=== PATIENT | female | born 1965 | race Caucasian/White ===

== ENCOUNTER 2017-05-28 14:48 | Inpatient (IN) | payer OTHER ==
[~2017-05-28] VITALS: Ht 182.9 cm; Wt 94.3 kg
--- NOTE | 2017-05-28 14:54 | NUR ---
PT SENT TO ED BY DR. FAITH FOR ABNORMALLY HIGH WBC, "SLUGGISH KIDNEY'S", AND ANOTHER LAB THAT PATIENT IS UNSURE OF. PT CURRENTLY BEING WORKED UP FOR LYME DISEASE. DR. FAITH TOLD PT SHE WILL BE ADMITTED AND HE WILL SEE HER TOMORROW.
--- NOTE | 2017-05-28 15:06 | NUR ---
PT AMBULATORY TO ROOM IN NAD
[2017-05-28] MEDS ORDERED: DOXYCYCLINE HY100 M2 PO (15:30)
[2017-05-28] MEDS ORDERED: PAXIL10 M1 PO (15:30)
--- NOTE | 2017-05-28 15:52 | NUR ---
PA SAUL IN WITH PT
[2017-05-28 15:54] LABS: ABSOLUTE BASOPHIL COUNT 0 /CUMM (0.0-0.2); ABSOLUTE EOSINOPHIL COUNT 0.1 /CUMM (0.0-0.7); ABSOLUTE GRANULOCYTE CT 17.4 /CUMM (1.4-6.5); ABSOLUTE LYMPH COUNT 0.9 /CUMM (1.2-3.4); ABSOLUTE MONOCYTE COUNT 1.4 /CUMM (0.10-0.60); BASOPHIL % 0 % (0.0-2.0); EOSINOPHIL % 0.6 % (0-5); GRANULOCYTE % 87.9 % (42.2-75.2); HEMATOCRIT 37.7 % (37-47); MEAN CORPUSCULAR HGB 29.1 PG (27.0-31.0); MEAN CORPUSCULAR HGB CONC 33.6 G/DL (33.0-37.0); MEAN CORPUSCULAR VOLUME 86.7 FL (81.0-99.0); MEAN PLATELET VOLUME 6.8 FL (7.4-10.4); PLATELET COUNT 247 /CUMM (130-400); RBC DISTRIBUTION WIDTH 12.9 % (11.5-14.5); RED BLOOD CELL CT 4.35 /CUMM (4.20-5.40); WHITE BLOOD CELL COUNT 19.8 /CUMM (4.8-10.8)
--- NOTE | 2017-05-28 16:00 | ED GENERAL ADULT ---
History of Present Illness General Chief Complaint: General Adult Stated Complaint: SENT BY DR. FAITH ABNORMAL LABS Source: patient Exam Limitations: no limitations Vital Signs & Intake/Output Vital Signs & Intake/Output Vital Signs Date Time Temp Pulse Resp B/P B/P Pulse O2 O2 Flow FiO2 Mean Ox Delivery Rate 05/31 0603 98.0 77 22 128/80 94 Room Air 05/30 2300 97.9 79 20 122/78 99 Room Air 05/30 1600 98.4 78 18 124/70 99 Room Air ED Intake and Output 05/31 0000 05/30 1200 Intake Total 500 0 Output Total 1500 600 Balance -1000 -600 Intake, Oral 500 0 Output, Urine 1500 600 Allergies Coded Allergies: Penicillins (Intermediate, ITCHING, HIVES 05/28/17) Reconcile Medications Ciprofloxacin HCl (Cipro) 500 MG TABLET 1 TAB PO BID UTI Paroxetine HCl (Paxil) 10 MG TABLET 1 TAB PO DAILY HOT FLASHES (Reported) Triage Note: PT SENT TO ED BY DR. FAITH FOR ABNORMALLY HIGH WBC, "SLUGGISH KIDNEY'S", AND ANOTHER LAB THAT PATIENT IS UNSURE OF. PT CURRENTLY BEING WORKED UP FOR LYME DISEASE. DR. FAITH TOLD PT SHE WILL BE ADMITTED AND HE WILL SEE HER TOMORROW. Triage Nurses Notes Reviewed? yes Onset: Gradual Duration: week(s): Timing: recent history Severity: moderate HPI: 51-year-old female presents to emergency department complaining of malaise and arthralgias 3-4 weeks. She also had a brief episode of left kidney pain that felt similar to her previous kidney stones about 3 days ago however this pain resolves on its own. Patient states that she was seen at Dr. Faith's office yesterday and had blood work drawn. She states that Dr. Faith suspected Lyme disease and she was started on oral doxycycline last night. Dr. Faith called her to inform her of abnormal blood work, low kidney filtering, leukocytosis, possible electrolyte abnormality. Dr. Faith instructed patient to report to emergency room for admission to hospital. Patient states that she has been feeling weakness, fatigue, intermittent bouts of diarrhea and constipation, chills, hot flashes. She denies seeing any tick on her recently. She denies urinary symptoms, sore throat, congestion, dyspnea, chest pain, abdominal pain, nausea, vomiting, dysuria, hematuria, urinary frequency. (FAMILIA HUGHES PA-C) Past History Travel History Traveled to [place] past 21 day No Medical History Any Pertinent Medical History? 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 No (FAMILIA HUGHES PA-C) Review of Systems Review of Systems Constitutional: Reports: see HPI. Comments Review of systems: See HPI, All other systems negative. Constitutional, + chills + tactile fever, +malaise HEENT: No visual changes no sore throat no congestion Cardiovascular: No chest pain , no palpitation , no orthopnea Skin: no rashes, no change in skin Respiratory: No dyspnea no cough no sputum GI: No nausea no vomiting,+ diarrhea, +constipation : No dysuria No hematuria, no frequency, no discharge Muscle skeletal: +joint pain, no joint swelling, + back pain, +neck pain, Neurologic: No numbness no confusion, no headache Psych: No stress no depression,. Heme/endocrine: No bruising no bleeding Immunology: No lymphadenopathy (FAMILIA HUGHES PA-C) Physical Exam Physical Exam General Appearance: well developed/nourished, no apparent distress, alert, awake Comments: Well-developed well-nourished person in no acute distress HEENT: Normal EENT exam; EOMI. HEAD is atraumatic. moist mucous membranes. Neck: Supple, normal range of motion without pain or tenderness Back: Nontender, no CVA tenderness. Full range of motion Cardiovascular: Tachycardia, Regular rhythm no murmurs rubs or gallops, normal JVP Respiratory: No respiratory distress. Patient speaking in full complete sentences. Breath sounds clear to auscultation bilaterally: NO W/R/R Abdomen: Soft, nontender nondistended, no appreciable organomegaly. Normal bowel sounds. No rebound/guarding, No appreciable enlargement of the abdominal aorta, No ascites. Extremity: No edema, full range of motion of extremities, normal and equal pulses bilaterally Neuro: Alert oriented x3, motor sensory normal, There were no obvious focal neurologic abnormalities. Skin: No appreciable rash on exposed skin, skin is warm and dry. Psych: Mood and affect is normal, memory and judgment is normal. Core Measures ACS in differential dx? No CVA/TIA Diagnosis: No Severe Sepsis Present: No Septic Shock Present: No (FAMILIA HUGHES PA-C) Progress Differential Diagnoses I considered the following diagnoses in my evaluation of the patient: [sepsis, lyme disease, pyelonephritis, UTI] Plan of Care: Orders Procedure Date/time Status CBC WITHOUT DIFFERENTIAL 05/31 726 Complete BASIC ELECTROLYTES PLUS BUN&CR 05/31 726 Complete Discharge Patient 05/31 UNK Active Regular Diet 05/30 D Active Laboratory Tests 05/31/17 0749: Anion Gap 10, Estimated GFR 58 L, BUN/Creatinine Ratio 13.0, CBC w Diff NO MAN DIFF REQ, RBC 4.22, MCV 85.5, MCH 29.0, RDW 13.0, MPV 6.6 L, Gran % 77.9 H, Lymphocytes % 14.2 L, Monocytes % 7.0, Eosinophils % 0.7, Basophils % 0.2, Absolute Granulocytes 7.2 H, Absolute Lymphocytes 1.3, Absolute Monocytes 0.6, Absolute Eosinophils 0.1, Absolute Basophils 0, PUBS MCHC 33.9 1748 - spoke with Dr. Faith over the phone. He recommends CT scan abdomen and pelvis with oral contrast, replacing electrolytes IV, blood cultures, lactic acid and admission to general medicine. Despite positive UA Dr. Faith does not believe that this is urosepsis. He states that the lyme culture was negative at his office. He is in agreement with IV Rocephin here in ED and continued IV fluids. The patient will be admitted for further IV fluids and IV antibiotics, possible nephrology consult given JUAN, electrolyte replacement if needed, repeat blood work, premature discharge would be medically unsafe. (FAMILIA HUGHES PA-C) Initial ED EKG: none (FAMILIA HUGHES PA-C) Departure Departure Disposition: STILL A PATIENT Condition: Stable Clinical Impression Primary Impression: Leukocytosis Secondary Impressions: Acute kidney injury, Fever Referrals: SHARAD FAITH MD (PCP/Family) Departure Forms: Customer Survey General Discharge Information Prescriptions: Current Visit Scripts Ciprofloxacin HCl (Cipro) 1 TAB PO BID #24 TAB Admission Note Spoke With: SHARAD FAITH MD Documentation of Exam: Documentation of any treatments & extenuating circumstances including Concerns Regarding Discharge (functional status, medication knowledge or non-compliance, living conditions, etc.) that warrant an admission rather than observation: [ Acute kidney injury, leukocytosis and tachycardia with no known source of infection, UA positive, requiring IV antibiotics, IV fluids, possible electrolyte replacement, repeat labs, possible nephrology consult, premature dicharge would be medically unsafe] (FAMILIA HUGHES PA-C) PA/WALL MAN Co-Sign Statement Statement: ED Attending supervision documentation- [X] I saw and evaluated the patient. I have also reviewed all the pertinent lab results and diagnostic results. I agree with the findings and the plan of care as documented in the PA's/WALL MAN's documentation. [X] I have reviewed the ED Record and agree with the PA's/WALL MAN's documentation. [] Additions or exceptions (if any) to the PAs/WALL MAN's note and plan are summarized below: [] (RJ SINGH,CARMELINA Isidro) Critical Care Note Critical Care Note Critical Care Time: non-applicable (FAMILIA HUGHES PA-C) pelvis with oral contrast, replacing electrolytes IV, blood cultures, lactic acid and admission to general medicine. Despite positive UA Dr. Faith does not believe that this is urosepsis. He states that will lyme culture was negative at his office. He is in agreement with IV Rocephin here in ED and continued IV fluids. The patient will be admitted for further IV fluids and IV antibiotics, possible nephrology consult given JUAN, electrolyte replacement if needed, repeat blood work, premature discharge would be medically unsafe. (FAMILIA HUGHES PA-C) Departure Departure Disposition: STILL A PATIENT Condition: Stable Clinical Impression Primary Impression: Leukocytosis Secondary Impressions: Acute kidney injury, Fever Referrals: SHARAD FAITH MD (PCP/Family) Departure Forms: Customer Survey General Discharge Information Admission Note Spoke With: SHARAD FAITH MD Documentation of Exam: Documentation of any treatments & extenuating circumstances including Concerns Regarding Discharge (functional status, medication knowledge or non-compliance, living conditions, etc.) that warrant an admission rather than observation: [ Acute kidney injury, leukocytosis and tachycardia with no known source of infection, UA positive, requiring IV antibiotics, IV fluids, possible electrolyte replacement, repeat labs, possible nephrology consult, premature dicharge would be medically unsafe] (FAMILIA HUGHES PA-C) PA/WALL MAN Co-Sign Statement Statement: ED Attending supervision documentation- [X] I saw and evaluated the patient. I have also reviewed all the pertinent lab results and diagnostic results. I agree with the findings and the plan of care as documented in the PA's/WALL MAN's documentation. [X] I have reviewed the ED Record and agree with the PA's/WALL MAN's documentation. [] Additions or exceptions (if any) to the PAs/WALL MAN's note and plan are summarized below: [] (RJ SINGH,CARMELINA Isidro)
--- NOTE | 2017-05-28 16:13 | NUR ---
URINE TRIO SENT TO LAB
--- NOTE | 2017-05-28 19:01 | NUR ---
PT ASSIGNED TO [facility] [id number]
--- NOTE | 2017-05-28 19:04 | History & Physical ---
General Information and HPI MD Statement: I have seen and personally examined CLARISSA REMY and documented this H&P. The patient is a 51 year old F who presented with a patient stated chief complaint of FEVER, CHILLS AND ABNORMAL LABS. Source of Information: patient Exam Limitations: no limitations History of Present Illness: Ms. Remy is a 51-year-old woman with no significant past medical history who presented to ED with a 3 to four-week history of muscle aches and pains, off and on, tiredness and intermittent episodes of nausea and vomiting. Patient denies any rash or any fevers observed at home. She denies any unusual direct contact or exposures, no recent tick or mosquito bites. Her symptoms have been waxing and waning. The symptoms worsened over the last 1 week to a point that the patient decided to go to primary care physician Dr. Ferreira, we are lab work was done and revealed leukocytosis and hence the patient was sent to the ED. No recent travel. Patient admits to having seen takes on her pet dogs, who often take a nap on her bed. Patient has also noted deers in her backyard. On admission the patient has been afebrile. Laboratory revealed a white blood count of 19,000 with segmented neutrophils and bands, creatinine 1.5 we worse than baseline and normal AST and ALT. A Lyme's titer was checked at Dr. Pham's office which came back negative. The patient was started on doxycycline yesterday, and the patient does admit to resolution of her symptoms since yesterday. Although, she has experienced 3 episodes of loose watery stools after the initiation of doxycycline. No cough, no sore throat, no shortness of breath, no abdominal pain, no constipation or diarrhea, no urinary complaints. No decline in functionality, no confusion. All other systems reviewed and negative, exceptions above. 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 Exam & Diagnostic Data Last 24 Hrs of Vital Signs/I&O Vital Signs Date Time Temp Pulse Resp B/P B/P Pulse O2 O2 Flow FiO2 Mean Ox Delivery Rate 05/28 1819 98.2 81 18 117/73 100 Room Air 05/28 1533 Room Air 05/28 1451 96.0 115 15 109/73 98 Room Air Room Air Intake & Output 05/28 1600 05/28 0800 05/28 0000 Intake Total Output Total Balance Patient 208 lb Weight Weight Reported by Patient Measurement Method Physical Exam General Appearance Alert, Oriented X3, Cooperative Skin No Rashes, No Breakdown Skin Temp/Moisture Exam: Cool/Dry Sepsis Skin Exam (color): Normal for Ethnicity HEENT Atraumatic, PERRLA Neck Supple, No JVD Lymphatic Axillary nl, Cervical nl Cardiovascular Regular Rate, Normal S1, Normal S2 Lungs Clear to Auscultation, Normal Air Movement Abdomen Normal Bowel Sounds, Soft, No Tenderness Neurological Normal Gait, Normal Speech, Strength at 5/5 X4 Ext Extremities No Clubbing, No Cyanosis, No Edema Vascular Normal Pulses, Pulses Symmetrical Last 24 Hrs of Labs/Toni: Laboratory Tests 05/28/17 1753: Lactic Acid Cancelled 05/28/17 1601: Urine Color YEL, Urine Clarity HAZY H, Urine pH 6.0, Ur Specific O'Brien 1.010, Urine Protein 30 H, Urine Ketones NEG, Urine Nitrite NEG, Urine Bilirubin NEG, Urine Urobilinogen 0.2, Ur Leukocyte Esterase LARGE H, Ur Microscopic SEDIMENT EXAMINED, Urine RBC 1-3, Urine WBC > 75 H, Ur Epithelial Cells RARE, Urine Bacteria MANY H, Urine Hemoglobin MOD H, Urine Glucose NEG 05/28/17 1543: Anion Gap 15, Estimated GFR 37 L, BUN/Creatinine Ratio 19.3, Glucose 127 H, Lactic Acid 0.9, Calcium 9.3, Total Bilirubin 0.6, AST 17, ALT 39, Alkaline Phosphatase 113, Total Protein 6.5, Albumin 3.4 L, Globulin 3.1, Albumin/ Globulin Ratio 1.1, CBC w Diff MAN DIFF ORDERED, RBC 4.35, MCV 86.7, MCH 29.1, RDW 12.9, MPV 6.8 L, Gran % 87.9 H, Lymphocytes % 4.5 L, Monocytes % 7.0, Eosinophils % 0.6, Basophils % 0 L, Absolute Granulocytes 17.4 H, Segmented Neutrophils 85 H, Band Neutrophils 3, Absolute Lymphocytes 0.9 L, Lymphocytes 5 L, Monocytes 7, Absolute Monocytes 1.4 H, Absolute Eosinophils 0.1, Absolute Basophils 0, Platelet Estimate ADEQUATE, Normocytic RBCs VERIFIED, Normochromic RBCs VERIFIED, PUBS MCHC 33.6, Fld Total RBCs Counted 100 Microbiology 05/28 1815 BLOOD: Blood Culture - RECD 05/28 175 BLOOD: Blood Culture - RECD 05/28 1601 URINE ROUT: Urine Culture - RECD Assessment/Plan Assessment: 51 year old woman with leukocytosis and myalgias a few weeks duration; a tickborne infection must be considered. Possibilities include Borrelia miyamotoi, a zoontic that spreads through Ixodes scapularis, or Anaplasma or Lyme, although would expect leukopenia or thrombocytopenia with Anaplasma and not leukocytosis as is the case in our patient. Other possibilities include West Nile virus, parvovirus B19 or enterovirus. Given patient's improvement of symptoms on doxycycline, a tickborne illnesses may be a possibility. Her symptoms of profuse sweating may be related to paroxetine, part of her disease spectrum of current illness or postmenopausal hot flashes. No rash. 1. Unexplained leukocytosis: Tickborne illness a possibility. Lyme's titer was checked and was negative at Dr. Pham's office. This essentially would rule out possibility of Lyme's because patient has had illness for 3-4 weeks and the titer should have been positive by now. Other possibilities as discussed above should be considered. Continue doxycycline for now. May merit from ID consult. Rule out other sources of infection with a chest x-ray, blood cultures, stool cultures if diarrhea persists. Urinalysis noted for leukocyte esterases, sent for urine culture, patient denies any urinary symptoms. 2. Acute kidney injury: Prerenal ; Likely a result of decreased by mouth intake , persistent nausea and vomiting. Continue fluid hydration, check BEP in a.m. 3. Status post hysterectomy: Continue paroxetine for now. 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 Full code. Intermittent pneumatic compression devices for DVT prophylaxis, and laboratory patient. Advanced diet as tolerated. Zofran for nausea and vomiting. As Ranked By This Provider Problem List: 1. Leukocytosis 2. Acute kidney injury Core Measures/Miscellaneous Acute Coronary Syndrome ACS Diagnosis: No Cerebrovascular Accident CVA/TIA Diagnosis: No Congestive Heart Failure CHF Diagnosis: No VTE (View Protocol) VTE Risk Factors: Acute medical illness, Age > 40, Immobility, paresis No [facility] VTE prophylaxis d/t: No contraindications No VTE Pharm Prophylaxis d/t: No contraindications (Ambulatory patient) VTE Diagnosis: No VTE Type: NONE VTE Confirmed by (Test): NONE Sepsis (View Protocol) Severe Sepsis Present: No Septic Shock Septic Shock Present: No Miscellaneous Documentation Attending Case Discussed With: SHARAD FAITH MD Primary Care Physician: SHARAD FAITH MD Patient sees these Specialists None Level of Patient Care: General Medicine
--- NOTE | 2017-05-28 19:21 | NUR ---
REPORT TO ROBERT PORRAS
[2017-05-28 19:55] VITALS: BP 130/70
--- NOTE | 2017-05-28 19:55 | NUR ---
AT THIS TIME, PT ADMITTED TO FROM THE ER, PT AMBULATED TO BED, A/OX3, ON RA, DENIES CP, DENIES SOB, VSS, IVF INFUSING PER EMAR, DENIES ANY DISCOMFORT, ORIENTED TO ROOM AND CALL [facility], SAFETY MAINTAINED, NEEDS WITHIN REACH
--- NOTE | 2017-05-28 20:10 | CT SCAN REPORT ---
EXAMINATION: CT ABDOMEN AND PELVIS WITH CONTRAST CLINICAL INFORMATION: Fever, pain COMPARISON: None TECHNIQUE: Multidetector volumetric imaging was performed from the superior aspect of the liver through the pubic symphysis following administration of oral contrast. Sagittal and coronal reformatted images were obtained on the technologist's workstation. DLP: 511.86 mGy-cm FINDINGS: LUNG BASES: The limited images of lower thorax demonstrate clear lungs. There is trace amount of pericardial effusion with maximum thickness of 0.5 cm behind the left ventricle. The cardiac size is normal. Noncontrast enhanced images of the abdomen and pelvis demonstrate: LIVER, GALLBLADDER, AND BILIARY TREE: The liver is normal in size, shape, and attenuation. No biliary ductal dilatation is present. The gallbladder is unremarkable with no evidence of radiopaque gallstones, gallbladder wall thickening, or obvious pericholecystic inflammatory changes. PANCREAS: Unremarkable. SPLEEN: Spleen is mildly enlarged, measures about 13.2 cm in maximum CC diameter. ADRENAL GLANDS: Unremarkable. KIDNEYS AND URETERS: There is moderate right-sided hydroureteronephrosis to the level of a 0.9 cm stone in the pelvic part of the right ureter. This stone measures 1248 Hounsfield unit in density. The stone is approximately located 7 cm from the right UV junction. Trace right perinephric fat stranding seen, axial image 43 from series 2. The left kidney is normal in size. No left urinary stone. No left-sided hydronephrosis. The urinary bladder is empty. GASTROINTESTINAL TRACT: The small and large bowel are unremarkable. The appendix is is not definitely visualized, however there are no inflammatory changes in the expected position of the appendix to suggest acute appendicitis.. ABDOMINAL WALL: No significant hernia is appreciated. LYMPH NODES: Normal. VASCULAR: Unremarkable. PELVIC VISCERA: The uterus and adnexa are unremarkable. OSSEOUS STRUCTURES: There is narrowing of L5-S1 intervertebral disc space with posterior disc osteophyte complex. IMPRESSION: Moderate right-sided hydroureteronephrosis to the level of a 0.9 cm stone in the pelvic part of the right ureter. Trace pericardial effusion. L5-S1 discopathy.
[2017-05-28 23:00] VITALS: BP 128/70
[2017-05-29 06:10] VITALS: BP 122/76
[2017-05-29 08:42] LABS: ABSOLUTE BASOPHIL COUNT 0 /CUMM (0.0-0.2); ABSOLUTE EOSINOPHIL COUNT 0 /CUMM (0.0-0.7); ABSOLUTE GRANULOCYTE CT 11.5 /CUMM (1.4-6.5); ABSOLUTE LYMPH COUNT 0.9 /CUMM (1.2-3.4); ABSOLUTE MONOCYTE COUNT 1.2 /CUMM (0.10-0.60); BASOPHIL % 0 % (0.0-2.0); EOSINOPHIL % 0.1 % (0-5); GRANULOCYTE % 84.5 % (42.2-75.2); HEMATOCRIT 33.3 % (37-47); MEAN CORPUSCULAR HGB 29.3 PG (27.0-31.0); MEAN CORPUSCULAR HGB CONC 33.7 G/DL (33.0-37.0); MEAN CORPUSCULAR VOLUME 87.1 FL (81.0-99.0); MEAN PLATELET VOLUME 6.9 FL (7.4-10.4); PLATELET COUNT 239 /CUMM (130-400); RBC DISTRIBUTION WIDTH 12.9 % (11.5-14.5); RED BLOOD CELL CT 3.83 /CUMM (4.20-5.40)
[2017-05-29 10:24] LABS: WHITE BLOOD CELL COUNT 13.6 /CUMM (4.8-10.8)
--- NOTE | 2017-05-29 10:31 | PN- Att Addend ---
Attending Addendum Attending Brief Note Attending medical note. 51-year-old lady well known to me was seen in my office on May 27 complaining of chills and Reiger with fever for the past 3 weeks. She been having fever on and off with intermission for about 3 weeks, no history of any tick bites no history of sore throat no history of any nausea vomiting or diarrhea. No history of dysuria frequency or urgency no history of any symptoms of upper respiratory infection or respiratory infections. She did experience headache and also some neck stiffness and board generalized body aches. She was extubated diaphoretic in the office she was having episode of fever blood was done in the office she was found suspicion for Lyme disease she was started on doxycycline. The next day May 28 labs called with results indicating her white count was 17, 000 with the potassium of 3.4 and severely depleted phosphates as well as creatinine of 1.7. She was called and asked to come to the hospital for admission. Past medical history no major significant medical history. Currently not on any prescription medications. On examination Patient is comfortable without any pain Conjunctiva is pale sclera is anicteric is membrane is dry Neck is supple JVD is not raised no carotid bruit present. S1-S2 is normal Lungs air entry equal bilaterally no crepitations or rhonchi Abdomen is soft nontender bowel sounds are present mild flank tenderness present on the right side. No calf tenderness present No focal neurological deficit. Intake & Output 05/29 1600 05/29 0800 05/29 0000 Intake Total 1080 1425 Output Total 300 Balance 1080 1125 Intake, IV 600 1225 Intake, Oral 480 200 Number 0 1 Bowel Movements Output, Urine 300 Patient 208 lb Weight Weight Reported by Patient Measurement Method Current Medications Sig/Essie Start time Last Medication Dose Route Stop Time Status Admin Ceftriaxone Sodium 0 .STK-MED ONE 05/28 182 DC .ROUTE Ceftriaxone Sodium 1,000 MG ONCE ONE 05/28 1715 DC 05/28 IV 05/28 1716 1822 Diclofenac Sodium 1 RICKY 4 TIMES/DAY 05/28 2200 AC 05/28 TOP 205 Doxycycline Hyclate 100 MG BID 05/28 2200 AC 05/29 PO 0928 Ondansetron HCl 4 MG Q8P PRN 05/28 1915 AC PO Paroxetine HCl 10 MG DAILY 05/29 1000 AC 05/29 PO 0927 Phosphate 250 MG PC AND AT BEDTIME 05/28 2245 AC 05/29 PO 0930 Potassium Chloride 20 MEQ .STK-MED ONE 05/28 2301 DC PO 05/28 2302 Potassium Chloride 20 MEQ ONCE ONE 05/28 224 DC 05/28 PO 05/28 224 2304 Sodium Chloride 1,000 ML .[id number] 05/28 1845 AC 05/28 IV 05/29 2124 2059 Sodium Chloride 1,000 ML BOLUS ONE 05/28 1600 DC 05/28 IV 05/28 1659 1630 Laboratory Tests 05/29 1753 Chemistry Sodium (137 - 145 mmol/L) 140 Potassium (3.5 - 5.1 mmol/L) 3.8 Chloride (98 - 107 mmol/L) 109 H Carbon Dioxide (22 - 30 mmol/L) 21 L Anion Gap (5 - 16) 10 BUN (7 - 17 mg/dL) 16 Creatinine (0.5 - 1.0 mg/dL) 1.1 H Estimated GFR (>60 ml/min) 52 L BUN/Creatinine Ratio (7 - 25 %) 14.5 Lactic Acid Cancelled Cancelled Phosphorus (2.5 - 4.5 mg/dL) 3.4 Creatine Kinase (30 - 135 U/L) 39 Hematology CBC w Diff Pending WBC Pending RBC Pending Hgb Pending Hct Pending MCV Pending MCH Pending RDW Pending Plt Count Pending MPV Pending Gran % Pending Lymphocytes % Pending Monocytes % Pending Eosinophils % Pending Basophils % Pending Absolute Granulocytes Pending Absolute Lymphocytes Pending Absolute Monocytes Pending Absolute Eosinophils Pending Absolute Basophils Pending PUBS MCHC Pending 05/28 05/28 1601 1543 Chemistry Sodium (137 - 145 mmol/L) 136 L Potassium (3.5 - 5.1 mmol/L) 3.6 Chloride (98 - 107 mmol/L) 101 Carbon Dioxide (22 - 30 mmol/L) 19 L Anion Gap (5 - 16) 15 BUN (7 - 17 mg/dL) 29 H Creatinine (0.5 - 1.0 mg/dL) 1.5 H Estimated GFR (>60 ml/min) 37 L BUN/Creatinine Ratio (7 - 25 %) 19.3 Glucose (65 - 99 mg/dL) 127 H Lactic Acid (0.7 - 2.1 mmol/L) 0.9 Calcium (8.4 - 10.2 mg/dL) 9.3 Phosphorus (2.5 - 4.5 mg/dL) 2.0 L Total Bilirubin (0.2 - 1.3 mg/dL) 0.6 AST (14 - 36 U/L) 17 ALT (9 - 52 U/L) 39 Alkaline Phosphatase (<127 U/L) 113 Total Protein (6.3 - 8.2 g/dL) 6.5 Albumin (3.5 - 5.0 g/dL) 3.4 L Globulin (1.9 - 4.2 gm/dL) 3.1 Albumin/Globulin Ratio (1.1 - 2.2 %) 1.1 Hematology CBC w Diff MAN DIFF ORDERED WBC (4.8 - 10.8 /CUMM) 19.8 H RBC (4.20 - 5.40 /CUMM) 4.35 Hgb (12.0 - 16.0 G/DL) 12.6 Hct (37 - 47 %) 37.7 MCV (81.0 - 99.0 FL) 86.7 MCH (27.0 - 31.0 PG) 29.1 RDW (11.5 - 14.5 %) 12.9 Plt Count (130 - 400 /CUMM) 247 MPV (7.4 - 10.4 FL) 6.8 L Gran % (42.2 - 75.2 %) 87.9 H Lymphocytes % (20.5 - 51.1 %) 4.5 L Monocytes % (1.7 - 9.3 %) 7.0 Eosinophils % (0 - 5 %) 0.6 Basophils % (0.0 - 2.0 %) 0 L Absolute Granulocytes (1.4 - 6.5 /CUMM) 17.4 H Segmented Neutrophils (42.2 - 75.2 %) 85 H Band Neutrophils (0.0 - 5.0 %) 3 Absolute Lymphocytes (1.2 - 3.4 /CUMM) 0.9 L Lymphocytes (20.5 - 51.1 %) 5 L Monocytes (1.7 - 9.3 %) 7 Absolute Monocytes (0.10 - 0.60 /CUMM) 1.4 H Absolute Eosinophils (0.0 - 0.7 /CUMM) 0.1 Absolute Basophils (0.0 - 0.2 /CUMM) 0 Platelet Estimate (ADEQUATE) ADEQUATE Normocytic RBCs VERIFIED Normochromic RBCs VERIFIED PUBS MCHC (33.0 - 37.0 G/DL) 33.6 Other Body Source Fld Total RBCs Counted (%) 100 Urines Urine Color (YEL,AMB,STR) YEL Urine Clarity (CLEAR) HAZY H Urine pH (5.0 - 8.0) 6.0 Ur Specific [place] (1.001 - 1.035) 1.010 Urine Protein (NEG,<30 MG/DL) 30 H Urine Ketones (NEG) NEG Urine Nitrite (NEG) NEG Urine Bilirubin (NEG) NEG Urine Urobilinogen (0.1 - 1.0 EU/dl) 0.2 Ur Leukocyte Esterase (NEG) LARGE H Ur Microscopic SEDIMENT EXAMINED Urine RBC (0 - 5 /HPF) 1-3 Urine WBC (0 - 2 /HPF) > 75 H Ur Epithelial Cells (NONE,FEW) RARE Urine Bacteria (NEG/NONE) MANY H Urine Hemoglobin (NEG) MOD H Urine Glucose (N MG/DL) NEG Microbiology Date/Time Procedure - Status Source Growth 05/28 1815 Blood Culture - RECD BLOOD 05/28 1753 Blood Culture - RECD BLOOD 05/28 1601 Urine Culture - RES URINE ROUT GRAM NEGATIVE RODS Vital Signs Date Time Temp Pulse Resp B/P B/P Pulse O2 O2 Flow FiO2 Mean Ox Delivery Rate 05/29 0610 99.4 98 20 122/76 95 Room Air 05/28 2300 98.6 90 16 128/70 99 Room Air 05/28 1955 98.7 98 18 130/70 99 Room Air 05/28 1937 98.7 67 18 128/68 96 Room Air 05/28 1819 98.2 81 18 117/73 100 Room Air 05/28 1533 Room Air 05/28 1451 96.0 115 15 109/73 98 Room Air Room Air Intake & Output 05/29 1600 07/02 0800 07/ 0000 Intake Total 1080 1425 Output Total 300 Balance 1080 1125 Intake, IV 600 1225 Intake, Oral 480 200 Number 0 1 Bowel Movements Output, Urine 300 Patient 208 lb Weight Weight Reported by Patient Measurement Method CT scan of the abdomen and pelvis IMPRESSION: Moderate right-sided hydroureteronephrosis to the level of a 0.9 cm stone in the pelvic part of the right ureter. Trace pericardial effusion. L5-S1 discopathy. Assessment #1. Fever with rigors for about 3 weeks with leukocytosis without any other symptoms. Etiology not very clear symptoms of headaches body aches and myalgia suspicious for Lyme disease was very high Lyme titers were sent and results are pending patient is currently on doxycycline. #2 CAT scan of the abdomen shows left mild hydronephrosis secondary to obstruction due to renal calculus with urine showing gram-negative rods. #3 acute kidney injury patient was started on IV fluids #4 depletion of potassium and also phosphates, patient was admitted for IV fluids and hydration as well as repletion of potassium and phosphorus. Will obtain infectious disease consult as well as neurology consult.
--- NOTE | 2017-05-29 10:32 | Admission Certification ---
Admission Certification Certification Statement - As attending physician, I certify that at the time of - admission, based on clinical presentation, severity of - symptoms, need for further diagnostic testing and - therapeutic interventions, and risk of adverse outcomes - without in-hospital treatment, in my clinical assessment, - this patient requires an acute hospital stay for a minimum - of two nights or longer. I have also considered psychsocial - factors such as support system, advanced age, financial - issues, cognitive issues, and failed out-patient treatments, - past re-admission history, safety of patient, and lack of - compliance as applicable. Specific rationale supporting this admission is: 51-year-old lady admitted to the hospital for fever with rigors for about 3 weeks duration, etiology not very clear. Patient had acute kidney injury associated with depletion of potassium as well as phosphates which were critical level. Patient was admitted for IV fluids as well as repletion of potassium and phosphates and to find out the etiology of this fever.
--- NOTE | 2017-05-29 10:54 | PN- Housestaff ---
Subjective Follow-up For: Generalized fatigue UTI/pyelonephritis 0.9 cm ureteral stone and pelvic region of right ureter Right-sided hydroureteronephrosis Complaints: low back pain Mild fatigue Subjective: Interval history: This morning Mrs. Fernández states that she feels slightly better with regards to an improvement in the fatigue. She denies any recurrence of nausea, fevers or chills at this time. She does complain of noticeable lower back discomfort. Review of Systems Constitutional: Reports: see HPI. EENTM: Reports: no symptoms. Cardiovascular: Reports: no symptoms. Respiratory: Reports: no symptoms. Gastrointestinal: Reports: no symptoms. Genitourinary: Reports: see HPI. Musculoskeletal: Reports: see HPI. Objective Last 24 Hrs of Vital Signs/I&O Vital Signs Date Time Temp Pulse Resp B/P B/P Pulse O2 O2 Flow FiO2 Mean Ox Delivery Rate 05/29 1525 98.5 94 20 118/80 97 Room Air 05/29 0610 99.4 98 20 122/76 95 Room Air 05/28 2300 98.6 90 16 128/70 99 Room Air 05/28 1955 98.7 98 18 130/70 99 Room Air 05/28 1937 98.7 67 18 128/68 96 Room Air 05/28 1819 98.2 81 18 117/73 100 Room Air Intake & Output 05/29 1600 / 0800 05/29 0000 Intake Total 1080 1425 Output Total 300 Balance 1080 1125 Intake, IV 600 1225 Intake, Oral 480 200 Number 0 1 Bowel Movements Output, Urine 300 Patient 208 lb Weight Weight Reported by Patient Measurement Method Physical Exam General Appearance: Alert, Cooperative, No Acute Distress Skin: No Significant Lesion HEENT: Mucous Membr. moist/pink Cardiovascular: Regular Rate, Normal S1, Normal S2 Lungs: Clear to Auscultation, Normal Air Movement, diminished breath sounds in the basilar region Abdomen: Normal Bowel Sounds, Soft, No Tenderness Neurological: Normal Speech Extremities: Normal Pulses Vascular: Pulses Symmetrical Current Medications: Current Medications Sig/Essie Start time Last Medication Dose Route Stop Time Status Admin Ceftriaxone Sodium 1,000 MG DAILY@1830 05/29 1830 AC IV Ceftriaxone Sodium 1,000 MG DAILY 05/29 1042 DC IV Ceftriaxone Sodium 0 .STK-MED ONE 05/28 182 DC .ROUTE Ceftriaxone Sodium 1,000 MG ONCE ONE 05/28 1715 DC 05/28 IV 07/01 1716 1822 Diclofenac Sodium 1 RICKY 4 TIMES/DAY 05/28 2200 AC 05/28 TOP 2059 Doxycycline Hyclate 100 MG BID 05/28 2200 DC 05/29 PO 0928 Ondansetron HCl 4 MG Q8P PRN 05/28 1915 AC 05/29 PO 1056 Paroxetine HCl 10 MG DAILY 05/29 1000 AC 05/29 PO 0927 Phosphate 250 MG PC AND AT BEDTIME 05/28 224 AC 05/29 PO 1306 Potassium Chloride 20 MEQ .STK-MED ONE 05/28 2301 DC PO 05/28 2302 Potassium Chloride 20 MEQ ONCE ONE 05/28 224 DC 05/28 PO 05/28 224 2304 Sodium Chloride 1,000 ML .[id number] 05/28 1845 AC 05/28 IV 05/29 2124 205 Sodium Chloride 1,000 ML BOLUS ONE 05/28 1600 DC 05/28 IV 05/28 1659 1630 Last 24 Hrs of Lab/Toni Results Last 24 Hrs of Labs/Mics: Laboratory Tests 05/29/17 0722: Anion Gap 10, Estimated GFR 52 L, BUN/Creatinine Ratio 14.5, Phosphorus 3.4, Creatine Kinase 39, CBC w Diff NO MAN DIFF REQ, RBC 3.83 L, MCV 87.1, MCH 29.3, RDW 12.9, MPV 6.9 L, Gran % 84.5 H, Lymphocytes % 6.8 L, Monocytes % 8.6, Eosinophils % 0.1, Basophils % 0 L, Absolute Granulocytes 11.5 H, Absolute Lymphocytes 0.9 L, Absolute Monocytes 1.2 H, Absolute Eosinophils 0, Absolute Basophils 0, PUBS MCHC 33.7 05/28/172052: Lactic Acid Cancelled 05/28/17 1753: Lactic Acid Cancelled Microbiology 05/28 1815 BLOOD: Blood Culture - RES 05/28 1753 BLOOD: Blood Culture - RES Assessment/Plan Assessment: Mrs. Fernández is a 51-year-old lady with unremarkable PMH who presented with complaints of 4 week duration muscle aches, fatigue, intermittent nausea and vomiting. No reports of recent travel or sick contacts. She endorsed noticeable worsening of her symptoms over the past 1 week for which she followed up with her PCP where she was found to have leukocytosis. She did reports noticing ticks on her pet dog but no specific tick bites on herself. VS on admission: BP 109/73, HR 115, RR 15, SPO2 98% on RA, T 96.0 Pertinent labs on admission: WBC 19.8, H&H 12.6/37.7, platelets 247, sodium 136, BUN/CR 29/1.5 Problem list: 1. UTI/pyelonephritis 2. 0.9 cm right-sided renal stone in pelvic ureter with hydroureteronephrosis 3. Acute kidney injury 4. Generalized fatigue Plan: 1. UTI/pyelonephritis * UA positive for large amount of leukocyte esterase, > 75 WBCs * Urine culture positive for gram-negative rods * We'll continue the patient on ceftriaxone pending culture and sensitivity 2. 0.9 cm right-sided renal stone in pelvic ureter with hydroureteronephrosis * We had a chance to speak with the urologist motion study technician today Dr. Prince. In the setting of her current stable hemodynamics, improvement in renal function with hydration there is no need for urgent cystoscopy with stent placement at this time. We'll plan to have the patient NPO tomorrow morning and will be taken to the OR for management of this stone * Based on the size greater than 5 mm it is unlikely that this stone will pass spontaneously. If she does become symptomatic with pain, fever or hemodynamic stability, would start the patient on Flomax and call urology stat 3. Acute kidney injury * Admission creatinine of 1.5 up from a baseline of 0.8. Interval improvement over the past 24 hours to 1.1. Continue to encourage PO intake 4. Generalized fatigue * Likely secondary to underlying infection. Problem List: 1. UTI (urinary tract infection) 2. Acute kidney injury 3. Nephrolithiasis Pain Ratin Pain Location: Lower back Pain Goal: Pain 4 or less Pain Plan: Pain pathway Tomorrow's Labs & Rationales: CBC: Trending leukocytosis BEP: Following up acute kidney injury DVT/Prophylaxis: pharmacological Consulting Request: Consulting Specialty: Urology
--- NOTE | 2017-05-29 11:03 | NUR ---
PT REPORTS NAUSEA AND DIARRHEA, GIVEN ZOFRAN X1, JUANITO PRASHANTH AND ICE WATER. PT RESTING COMFORTABLY IN BED. WILL CONTINUE TO MONITOR.
[2017-05-29 15:25] VITALS: BP 118/80
[2017-05-29 22:31] VITALS: BP 122/70
[2017-05-30 07:24] VITALS: BP 130/70
--- NOTE | 2017-05-30 08:35 | PN- Housestaff ---
Subjective Follow-up For: Generalized fatigue UTI/pyelonephritis 0.9 cm ureteral stone and pelvic region of right ureter Right-sided hydroureteronephrosis Subjective: I chantal personally seen and examined the patient today. She feels much better and reports improvemnt in her fatigue. She slept well through the night and denies any fever, nausea and vomiting. She was NPO at the time. Review of Systems Constitutional: Denies: see HPI. Objective Last 24 Hrs of Vital Signs/I&O Vital Signs Date Time Temp Pulse Resp B/P B/P Pulse O2 O2 Flow FiO2 Mean Ox Delivery Rate 05/30 724 98.7 98 20 130/70 99 Room Air 05/29 2231 98.9 81 20 122/70 98 Room Air Intake & Output 05/30 1600 05/30 0800 05/30 0000 Intake Total 0 120 Output Total 018 610 8205 Balance -800 -600 -1580 Intake, IV Intake, Oral 0 120 Output, Urine 670 788 6115 Physical Exam General Appearance: Alert, Oriented X3, Cooperative, No Acute Distress Other Physical Findings: Skin No Rashes HEENT Atraumatic, PERRLA, EOMI Neck Supple, No JVD Cardiovascular Regular Rate, Normal S1, Normal S2, No Murmurs Lungs Clear to Auscultation, Normal Air Movement Abdomen Normal Bowel Sounds, Soft, No Tenderness, No Hepatospenomegaly, No Masses Neurological Normal Gait, Normal Speech, Strength at 5/5 X4 Ext, Normal Tone, Sensation Intact Extremities No Clubbing, No Cyanosis, No Edema, Normal Pulses, Normal Capillary Refill Vascular Normal Pulses Current Medications: Current Medications Sig/Essie Start time Last Medication Dose Route Stop Time Status Admin Ceftriaxone Sodium 1,000 MG DAILY@1830 02 1830 AC 05/30 IV 1736 Diclofenac Sodium 1 RICKY 4 TIMES/DAY 05/28 2200 AC 05/30 TOP 1737 Ondansetron HCl 4 MG Q8P PRN 05/28 1915 AC 05/29 PO 1056 Paroxetine HCl 10 MG DAILY 05/29 1000 AC 05/30 PO 0857 Phosphate 250 MG PC AND AT BEDTIME 05/28 2245 AC 05/30 PO 1736 Sodium Chloride 1,000 ML .[id number] 05/28 1845 DC 05/28 IV 05/29 Assessment/Plan Assessment: Mrs. Fernández is a 51-year-old lady with unremarkable PMH who presented with complaints of 4 week duration muscle aches, fatigue, intermittent nausea and vomiting. No reports of recent travel or sick contacts. She endorsed noticeable worsening of her symptoms over the past 1 week for which she followed up with her PCP where she was found to have leukocytosis. She did reports noticing ticks on her pet dog but no specific tick bites on herself. VS on admission: BP 109/73, HR 115, RR 15, SPO2 98% on RA, T 96.0 Pertinent labs on admission: WBC 19.8, H&H 12.6/37.7, platelets 247, sodium 136, BUN/CR 29/1.5 Problem list: 1. UTI/pyelonephritis 2. 0.9 cm right-sided renal stone in pelvic ureter with hydroureteronephrosis 3. Acute kidney injury 4. Generalized fatigue Plan: 1. UTI/pyelonephritis * UA positive for large amount of leukocyte esterase, > 75 WBCs * Urine culture positive for gram-negative rods * We'll continue the patient on ceftriaxone pending culture and sensitivity 2. 0.9 cm right-sided renal stone in pelvic ureter with hydroureteronephrosis * Patient is S/P right ESWL with ureteral stent. Will follow urology recommendations post-procedure and start the patient on regular diet. Follow up with Dr. Hester as an outpatient. 3. Acute kidney injury * Admission creatinine of 1.5 up from a baseline of 0.8. Interval improvement over the past 24 hours to 1.1. Likely secondary to the ureteric stone. 4. Generalized fatigue * Likely secondary to underlying infection. Problem List: 1. Acute kidney injury 2. UTI (urinary tract infection) 3. Nephrolithiasis Pain Ratin Pain Location: none Pain Goal: Pain 4 or less Pain Plan: Pain Pathway Tomorrow's Labs & Rationales: CBC & BEP(Post procedure) Consulting Request: Consulting Specialty: Urology
--- NOTE | 2017-05-30 09:18 | PN- Att Addend ---
Attending Addendum Attending Brief Note Patient feels better today considering her ongoing symptoms for last 3 weeks that included body aches and fatigue. She denies fever. She denies flank pain. General Appearance: Alert, No Acute Distress Skin: Grossly normal HEENT: PEERLA Neck: Supple, No JVD Cardiovascular: Regular Rate, Normal S1, Normal S2, No Murmurs Lungs: Clear to Auscultation, Normal Air Movement Abdomen: Normal Bowel Sounds, Soft, No Tenderness Neurological: Normal Speech, Strength at 5/5 X4 Ext, Cranial Nerves 3-12 NL, Reflexes 2+ Extremities: No Clubbing, No Cyanosis, No Edema Vascular: Normal Pulses Assessment 51-year-old with no significant past medical history initially presented in body aches for which she was empirically started on doxycycline considering Lyme's disease. CAT scan suggested mild hydronephrosis with an obstructive stone. In addition her urine culture and blood cultures have come back positive for gram- negative rods. This is likely a urosepsis in the setting of obstructive uropathy with mild hydronephrosis. Plan is for lithotripsy along with stent placement today by urology. In the meantime we will continue her on current antibiotics and follow cultures sensitivity. Plan Continue IV ceftriaxone Lithotripsy and stenting today Follow cultures Continue other home meds DVT prophylaxis Current Medications Sig/Essie Start time Last Medication Dose Route Stop Time Status Admin Ceftriaxone Sodium 1,000 MG DAILY@1830 05/29 1830 AC 05/29 IV 1752 Ceftriaxone Sodium 1,000 MG DAILY 05/29 1042 DC IV Diclofenac Sodium 1 RICKY 4 TIMES/DAY 05/28 2200 AC 05/30 TOP 0857 Doxycycline Hyclate 100 MG BID 05/28 220 DC 05/29 PO 0928 Ondansetron HCl 4 MG Q8P PRN 05/28 1915 AC 05/29 PO 1056 Paroxetine HCl 10 MG DAILY 05/29 1000 AC 05/30 PO 0857 Phosphate 250 MG PC AND AT BEDTIME 05/28 2245 AC 05/30 PO 0857 Sodium Chloride 1,000 ML .[id number] 05/28 1845 DC 05/28 IV 05/29 Vital Signs Date Time Temp Pulse Resp B/P B/P Pulse O2 O2 Flow FiO2 Mean Ox Delivery Rate 05/30 724 98.7 98 20 130/70 99 Room Air 05/291 98.9 81 20 122/70 98 Room Air 05/29 1525 98.5 94 20 118/80 97 Room Air
--- NOTE | 2017-05-30 13:15 | Cons- Urology ---
See Addendum General Information and HPI Consulting Request Date of Consult: 05/30/17 Requested By: SHARAD FAITH MD Reason for Consult: distal ureteral stone on right side Source of Information: patient Exam Limitations: no limitations History of Present Illness: 51yo female with no PMH other than kidney stones. She has passed them spontaneously in the past with no surgical intervention. She has not been feeling well for a month but in the last week, she was nauseous and had RLQ pain. She was sent to the ER by her PMD and her labs were with a mildly elevated WBXC at 13 and a normal Cr. She had a CT scan performed which showed hydronephrosis with a 9mm distal ureteral stone 7cm from the UVJ. She otherwise has a hx of sporadic UTIs only. No gross hematuria. No smoking hx. Allergies/Medications Allergies: Coded Allergies: Penicillins (Intermediate, ITCHING, HIVES 05/28/17) Home Med List: Doxycycline Hyclate 100 MG CAPSULE 1 CAP PO BID R/O LYME (Reported) Paroxetine HCl (Paxil) 10 MG TABLET 1 TAB PO DAILY HOT FLASHES (Reported) Current Medications: Current Medications Sig/Essie Start time Last Medication Dose Route Stop Time Status Admin Ceftriaxone Sodium 1,000 MG DAILY@1830 02 1830 AC 05/29 IV 1752 Diclofenac Sodium 1 RICKY 4 TIMES/DAY 05/28 2200 AC 05/30 TOP 0857 Ondansetron HCl 4 MG Q8P PRN 05/28 1915 AC 05/29 PO 1056 Paroxetine HCl 10 MG DAILY 05/29 1000 AC 05/30 PO 0857 Phosphate 250 MG PC AND AT BEDTIME 05/28 2245 AC 05/30 PO 0857 Sodium Chloride 1,000 ML .[id number] 05/28 1845 DC 05/28 IV 05/294 9 Past History Medical History Blood Transfusion Hx: No Neurological: NONE EENT: NONE Cardiovascular: NONE Respiratory: NONE Gastrointestinal: NONE Hepatic: NONE Renal: KIDENY STONES Musculoskeletal: NONE Psychiatric: NONE Endocrine: NONE Blood Disorders: NONE Cancer(s): NONE 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 Home Smoking Status: Never Smoked ETOH Use: denies use Illicit Drug Use: denies illicit drug use Review of Systems Review of Systems Constitutional: Reports: no symptoms. EENTM: Reports: no symptoms. Cardiovascular: Reports: no symptoms. Respiratory: Reports: no symptoms. GI: Reports: no symptoms. Genitourinary: Reports: no symptoms. Musculoskeletal: Reports: no symptoms. Skin: Reports: no symptoms. Neurological/Psychological: Reports: no symptoms. Hematologic/Endocrine: Reports: no symptoms. Immunologic/Allergic: Reports: no symptoms. Exam & Diagnostic Data Vital Signs and I&O Vital Signs Date Time Temp Pulse Resp B/P B/P Pulse O2 O2 Flow FiO2 Mean Ox Delivery Rate 05/30 724 98.7 98 20 130/70 99 Room Air 05/29 2231 98.9 81 20 122/70 98 Room Air 05/29 1525 98.5 94 20 118/80 97 Room Air Intake & Output 05/30 1600 05/30 0800 05/30 0000 05/29 1600 05/29 0800 / 0000 Intake Total 0 120 1080 1425 Output Total 600 1700 300 Balance -600 -1580 1080 1125 Intake, IV 600 1225 Intake, Oral 0 120 480 200 Number 0 1 Bowel Movements Output, Urine 600 1700 300 Patient 94.347 kg Weight Weight Reported by Patient Measurement Method Physical Exam: awake and alert, NAD sitting up in bed abd soft, ND/NT No CVA tenderness RLQ pain mild No smith in place Physical Exam General Appearance: well developed/nourished, no apparent distress, alert, awake , comfortable Head: normal appearance Eyes: Bilateral: normal appearance. Ears, Nose, Throat: normal ENT inspection Neck: normal inspection Respiratory: no respiratory distress Gastrointestinal: soft, tenderness (right lower quadrant) Rectal: deferred Back: normal inspection Extremities: normal inspection Neurologic/Psych: awake, alert, oriented x 3 Cranial Nerves: normal hearing, normal speech Skin: intact, normal color, warm/dry Pelvic: Appearance Normal Imaging Results: CT scan with right istal ureteral stone with hydronephrosis Assessment/Plan Assessment/Plan 51yo female with a hx of kidney stones. She has a distal ureteral stone 9mm in size with RLQ pain and hydronephrosis. She has been NPO since last night. Recommend right ESWL with possible ureteral stent. She will followup as an outpt. Other Findings/Comments: awaiting urine and blood culture results Consult Acknowledgment - Thank you for your consult request.
--- NOTE | 2017-05-30 13:20 | Operative Report ---
Operative/Inv Procedure Report Surgery Date: 05/30/17 Name of Procedure: right ESWL with ureteral stent Pre-Operative Diagnosis: right distal ureteral stone with hydronephrosis Post-Operative Diagnosis: same Estimated Blood Loss: scant Surgeon/Vp Product Management: MARCELL SINGH,SHARAD Robertson Anesthesia: local monitored anesthesi Drains: 6x28cm stent Complications: none Condition: stable Operative Indication: right ureteral stone with hydronephrosis Operative/Procedure Note Note: 51yo female identified in the holding area. She was consented for a right ESWL and possible ureteral stent. She was given the risks, benefits and alternatives. All questions were answered. Patient was taken to the operating room and placed in a supine position. Timeout was performed. She was given IV antibiotics on the floor (ceftriaxone) but her cultures showed Pseudomonas so she was given 400mg IV of cipro. She was given IV sedation and positioned optimally for the ESWL. Shocks were started on the right side with power of 1 and increased quickly to power of 20 with a total of 3000 shocks. The patient was then placed into a frog leg position and the right ureter was stented with a Solo guidewire and cystoscopy. Cystoscopy view showed bladder lining consistent with an UTI. The stent was seen to be in good position. Cloudy urine was expelled from the right uereteral orifice. Patient tolerated the procedure well. The stone appeared changed at the end of the ESWL. Findings: large 9mm stone in the distal right ureter. stent in good position. Discharge Disposition: PACU
--- NOTE | 2017-05-30 13:30 | NUR ---
NURSING NOTE: PATIENT LEFT LFOOR VIA STRETCHER WITH DISTRIBUTION FOR OR PROCEDURE. PATIENT A/OX3, DENIES PAIN AT THIS TIME. NPO SINCE MIDNIGHT. PATIENT SCRUBBED, ALL JEWELRY REMOVED, UNDERGARMENTS REMOVED, PATIENT URINATED PRIOR TO PROCEDURE. VSS. ALL PRE-PROCEDURE PAPERWORK ON CHART. WILL AWAIT RETURN.
[2017-05-30 16:00] VITALS: BP 124/70
--- NOTE | 2017-05-30 16:15 | NUR ---
NURSING NOTE: PATIENT RETURNED TO FLOOR VIA STRETCHER WITH DISTRIBUTION FROM PACU. PATIETN A/OX3, STEADY AGIT, REQUESTING REGULAR DIET AT THIS TIME. DENIES CP, SOB, PAIN, NAUSEA. WILL CONTINUE TO MONITOR.
[2017-05-30 23:00] VITALS: BP 122/78
[2017-05-31 06:03] VITALS: BP 128/80
--- NOTE | 2017-05-31 07:01 | Discharge Summary ---
Hospital Course Course Consulting Request: Consulting Specialty: Urology Allergies: Coded Allergies: Penicillins (Intermediate, ITCHING, HIVES 05/28/17) Discharge Instructions Medications at Discharge Discharge Medications: Stop taking the following medications: Doxycycline Hyclate (Doxycycline Hyclate) 100 MG CAPSULE ORAL TWICE DAILY Qty = 42 Continue taking these medications: Paroxetine HCl (Paxil) 10 MG TABLET 1 Tablet ORAL DAILY Qty = 30 Comments: Last Taken: 05/31/17 Time: 9:00 AM Start taking the following new medications: Ciprofloxacin HCl (Cipro) 500 MG TABLET 1 Tablet ORAL TWICE DAILY Qty = 24 No Refills Comments: NOT GIVEN IN HOSPITAL
--- NOTE | 2017-05-31 08:04 | PN- Housestaff ---
Subjective Follow-up For: Generalized fatigue UTI/pyelonephritis 0.9 cm ureteral stone and pelvic region of right ureter Right-sided hydroureteronephrosis Subjective: I have personally seen and examined the patient this morning. She is doing fine. Denies any fever, chills, nausea, vomilting, fatigue or pain. Does report sneezing and runny nose after she came back from the OR. Review of Systems Constitutional: Denies: see HPI. Objective Last 24 Hrs of Vital Signs/I&O Vital Signs Date Time Temp Pulse Resp B/P B/P Pulse O2 O2 Flow FiO2 Mean Ox Delivery Rate 05/31 0603 98.0 77 22 128/80 94 Room Air 05/30 2300 97.9 79 20 122/78 99 Room Air 05/30 1600 98.4 78 18 124/70 99 Room Air Intake & Output 05/31 1600 05/31 0800 05/31 0000 Intake Total 350 500 Output Total 1450 700 Balance -1100 -200 Intake, Oral 350 500 Output, Urine 1450 700 Physical Exam General Appearance: Alert, Oriented X3, Cooperative, No Acute Distress Other Physical Findings: Skin No Rashes HEENT Atraumatic, PERRLA, EOMI Neck Supple, No JVD Cardiovascular Regular Rate, Normal S1, Normal S2, No Murmurs Lungs Clear to Auscultation, Normal Air Movement Abdomen Normal Bowel Sounds, Soft, No Tenderness, No Hepatospenomegaly, No Masses Neurological Normal Gait, Normal Speech, Strength at 5/5 X4 Ext, Normal Tone, Sensation Intact Extremities No Clubbing, No Cyanosis, No Edema, Normal Pulses, Normal Capillary Refill Vascular Normal Pulses Current Medications: Current Medications Sig/Essie Start time Last Medication Dose Route Stop Time Status Admin Ceftriaxone Sodium 1,000 MG DAILY@1830 /02 1830 DCD 05/30 IV 1736 Diclofenac Sodium 1 RICKY 4 TIMES/DAY 05/28 2200 DCD 05/30 TOP 1737 Ondansetron HCl 4 MG Q8P PRN 05/28 1915 DCD 05/29 PO 1056 Paroxetine HCl 10 MG DAILY 05/29 1000 DCD 05/31 PO 0821 Phosphate 250 MG PC AND AT BEDTIME 05/28 2245 DCD 05/31 PO 0821 Last 24 Hrs of Lab/Toni Results Last 24 Hrs of Labs/Mics: Laboratory Tests 05/31/17 0749: Anion Gap 10, Estimated GFR 58 L, BUN/Creatinine Ratio 13.0, CBC w Diff NO MAN DIFF REQ, RBC 4.22, MCV 85.5, MCH 29.0, RDW 13.0, MPV 6.6 L, Gran % 77.9 H, Lymphocytes % 14.2 L, Monocytes % 7.0, Eosinophils % 0.7, Basophils % 0.2, Absolute Granulocytes 7.2 H, Absolute Lymphocytes 1.3, Absolute Monocytes 0.6, Absolute Eosinophils 0.1, Absolute Basophils 0, PUBS MCHC 33.9 Assessment/Plan Assessment: Mrs. Fernández is a 51-year-old lady with unremarkable PMH who presented with complaints of 4 week duration muscle aches, fatigue, intermittent nausea and vomiting. No reports of recent travel or sick contacts. She endorsed noticeable worsening of her symptoms over the past 1 week for which she followed up with her PCP where she was found to have leukocytosis. She did reports noticing ticks on her pet dog but no specific tick bites on herself. VS on admission: BP 109/73, HR 115, RR 15, SPO2 98% on RA, T 96.0 Pertinent labs on admission: WBC 19.8, H&H 12.6/37.7, platelets 247, sodium 136, BUN/CR 29/1.5 Problem list: 1. UTI/pyelonephritis 2. 0.9 cm right-sided renal stone in pelvic ureter with hydroureteronephrosis 3. Acute kidney injury 4. Generalized fatigue Plan: 1. UTI/pyelonephritis * UA positive for large amount of leukocyte esterase, > 75 WBCs * Urine culture positive for gram-negative rods * Will Discontinue Ceftriaxone and discharge the patient on ciprofloxacin 500mg BID for 14 days. 2. 0.9 cm right-sided renal stone in pelvic ureter with hydroureteronephrosis * Patient is S/P right ESWL with ureteral stent, she is comfortable and has no complications after the procedure. Follow up with Dr. Hester as an outpatient. 3. Acute kidney injury * Admission creatinine of 1.5 up from a baseline of 0.8. Interval improvement over the past 24 hours to 1.1. Likely secondary to the ureteric stone. 4. Generalized fatigue * Likely secondary to underlying infection. Problem List: 1. Nephrolithiasis 2. UTI (urinary tract infection) Pain Ratin Pain Location: None Pain Goal: Pain 4 or less Pain Plan: Pain Pathway Tomorrow's Labs & Rationales: None(discharged) Consulting Request: Consulting Specialty: Urology
[2017-05-31 08:19] LABS: ABSOLUTE BASOPHIL COUNT 0 /CUMM (0.0-0.2); ABSOLUTE EOSINOPHIL COUNT 0.1 /CUMM (0.0-0.7); ABSOLUTE GRANULOCYTE CT 7.2 /CUMM (1.4-6.5); ABSOLUTE LYMPH COUNT 1.3 /CUMM (1.2-3.4); ABSOLUTE MONOCYTE COUNT 0.6 /CUMM (0.10-0.60); BASOPHIL % 0.2 % (0.0-2.0); EOSINOPHIL % 0.7 % (0-5); GRANULOCYTE % 77.9 % (42.2-75.2); HEMATOCRIT 36.1 % (37-47); MEAN CORPUSCULAR HGB CONC 33.9 G/DL (33.0-37.0); MEAN CORPUSCULAR VOLUME 85.5 FL (81.0-99.0); MEAN PLATELET VOLUME 6.6 FL (7.4-10.4); PLATELET COUNT 274 /CUMM (130-400); RED BLOOD CELL CT 4.22 /CUMM (4.20-5.40); WHITE BLOOD CELL COUNT 9.2 /CUMM (4.8-10.8)
--- NOTE | 2017-05-31 08:25 | PN- Att Addend ---
Attending Addendum Attending Brief Note Attending note. Patient looks well she's sitting out of bed to chair no complaints at all on IV fluids and antibiotics. Intake & Output 05/31 1600 05/31 0800 05/31 0000 Intake Total 500 Output Total 1450 700 Balance -1450 -200 Intake, Oral 500 Output, Urine 1450 700 Current Medications Sig/Essie Start time Last Medication Dose Route Stop Time Status Admin Acetaminophen 1,000 MG .STK-MED ONE 05/30 1355 DC IV 05/30 1356 Ceftriaxone Sodium 1,000 MG DAILY@1830 07/02 1830 05/30 IV 1736 Dexamethasone 4 MG .STK-MED ONE 05/30 1355 DC IM 05/30 1356 Diclofenac Sodium 1 RICKY 4 TIMES/DAY 05/28 2200 05/30 TOP 1737 Fentanyl Citrate 100 MCG .STK-MED ONE 05/30 1354 DC IM 05/30 1355 Hydromorphone HCl 2 MG .STK-MED ONE 05/30 1354 DC IM 05/30 1355 Ketorolac 30 MG .STK-MED ONE 05/30 1355 DC Tromethamine IM 05/30 1356 Midazolam HCl 2 MG .STK-MED ONE 05/30 1354 DC IM 05/30 1355 Ondansetron HCl 4 MG .STK-MED ONE 05/30 1355 DC IM 05/30 1356 Ondansetron HCl 4 MG Q8P PRN 05/28 1915 AC 05/29 PO 1056 Paroxetine HCl 10 MG DAILY 05/29 1000 AC 05/30 PO 0857 Phosphate 250 MG PC AND AT BEDTIME 05/28 2245 05/30 PO 2219 Laboratory Tests 05/31 0749 Chemistry Sodium Pending Potassium Pending Chloride Pending Carbon Dioxide Pending Anion Gap Pending BUN Pending Creatinine Pending BUN/Creatinine Ratio Pending Hematology CBC w Diff Pending WBC Pending RBC Pending Hgb Pending Hct Pending MCV Pending MCH Pending RDW Pending Plt Count Pending MPV Pending PUBS MCHC Pending Vital Signs Date Time Temp Pulse Resp B/P B/P Pulse O2 O2 Flow FiO2 Mean Ox Delivery Rate 05/31 06 98.0 77 22 128/80 94 Room Air 05/30 2300 97.9 79 20 122/78 99 Room Air 05/30 1600 98.4 78 18 124/70 99 Room Air Intake & Output 05/31 1600 05/31 0800 05/31 0000 Intake Total 500 Output Total 1450 700 Balance -1450 -200 Intake, Oral 500 Output, Urine 1450 700 On examination Patient's awake alert oriented no acute no distress at all. Neck is supple S1-S2 is normal Lungs air entry equal bilaterally Abdomen is soft nontender bowel sounds are present No focal neurological deficit. Assessment Urosepsis secondary to right hydronephrosis secondary to kidney stone. Status post lithotripsy patient is comfortable no complications after procedure Plan Discharge home Cipro 500 twice a day for 14 days Continue with plenty of hydration follow-up with urology/primary care
--- NOTE | 2017-05-31 09:03 | Discharge Summary ---
Visit Information Visit Dates Admission Date: 05/28/17 Discharge Date: 05/31/17 Hospital Course Course Attending Physician: SHARAD FAITH MD Primary Care Physician: SHARAD FAITH MD Other Care Providers: DR SYLVESTER Consulting Request: Consulting Specialty: Urology Hospital Course: Patient was admitted with fever ryegrass and chills She was dehydrated and was admitted with acute kidney injury with a creatinine of 1.7 and hyperphosphatemia. She had a CT scan of the abdomen and pelvis done which showed presence of 9 mm stone in the right ureteropelvic junction. Blood cultures and urine cultures grew gram-negative rods which were identified as Klebsiella pneumonia. Initially she was started on IV Rocephin and she felt much better her WBC count decreased from 17,000-13,000. After receiving IV fluids her creatinine dropped down to 1.7-0.6. She underwent lithotripsy by Dr. Sylvester she had no complications of the procedure, she tolerated the procedure well. Her condition at time of discharge Is afebrile feeling well no complaints Neck is supple S1-S2 is normal Lungs are clear Abdomen is soft nontender boss was of present No calf tenderness present. No focal neurological deficit. No flank tenderness present. Allergies: Coded Allergies: Penicillins (Intermediate, ITCHING, HIVES 05/28/17) Disposition Summary Disposition Principal Diagnosis: Urosepsis Additional Diagnosis: Kidney stone in the right ureter uteropelvic junction Hypokalemia Hyperphosphatemia Acute kidney injury Discharge Disposition: home or self care Discharge Instructions General Discharge Information Code Status: Full Code Patient's Diet: Regular diet Patient's Activity: As tolerated Follow-Up Instructions/Appts: Dr. Higinio Pham's Copies To: SHARAD FAITH MD, MD Review Statement Documenting Attending: SHARAD FAITH MD
[2017-05-31] MEDS ORDERED: CIPRO500 M1 PO (11:00)
--- NOTE | 2017-05-31 11:02 | Patient Discharge Instructions ---
Discharge Instructions General Discharge Information You were seen/treated for: - Renal stones Special Instructions: Please follow up with your primary care phsyican in one week. Please follow up with your urologist in one week. Diet Recommended Diet: Regular Activity Activity Self Limited: Yes Acute Coronary Syndrome Inclusion Criteria At DC or during hospital stay patient has or had the following: ACS DIAGNOSIS No Discharge Core Measures Meds if any: Prescribed or Continued at Discharge Meds if any: NOT Prescribed or Continued at Discharge Congestive Heart Failure Inclusion Criteria At DC or during hospital stay patient has or had the following: CHF DIAGNOSIS No Discharge Core Measures Meds if any: Prescribed or Continued at Discharge Meds if any: NOT Prescribed or Continued at Discharge Cerebrovascular accident Inclusion Criteria At DC or during hospital stay patient has or had the following: CVA/TIA Diagnosis No Discharge Core Measures Meds if any: Prescribed or Continued at Discharge Meds if any: NOT Prescribed or Continued at Discharge Venous thromboembolism Inclusion Criteria VTE Diagnosis No VTE Type NONE VTE Confirmed by (Test) NONE Discharge Core Measures - Per Current guidelines, there needs to be overlap - treatment for the first 5 days of Warfarin therapy. - If discharged on Warfarin prior to 5 days of - overlap therapy, the patient will need to be - assessed for post discharge needs including - *Post discharge parental anticoagulation - *Warfarin and/or parental anticoagulation education - *Follow up date to check INR post discharge At least 5 days overlap therapy as Inpatient No Meds if any: Prescribed or Continued at Discharge Note: Overlap Therapy is Warfarin and Anticoagulant Meds if any: NOT Prescribed or Continued at Discharge
== END 2017-05-31 11:30 | DRG 690 ==
LOC: ERH 14:48 → 2NB 18:32 → ERHI 18:32 → ENRESERV 18:44 → ENTRNSPT 19:23 → CMPTRNSPT 19:41 → 2NB 19:46 → ENTRNSPT 05-30 15:43 → CMPTRNSPT 05-30 16:26 → 2NB 05-31 11:30
PROVIDERS: Emergency Medicine; Internal Medicine; Internal Medicine Hematology & Oncology; ADMIT Internal Medicine
PROC: 0TF6XZZ Fragmentation in Right Ureter, External Approach (ICD-10-PCS; principal; 2017-05-30)
PROC: 0T768DZ Dilation of Right Ureter with Intraluminal Device, Via Natural or Artificial Opening Endoscopic (ICD-10-PCS; 2017-05-30)
DX: N13.6 Pyonephrosis (principal); N17.9 Acute kidney failure, unspecified; E83.39 Other disorders of phosphorus metabolism; E86.0 Dehydration; B96.1 Klebsiella pneumoniae [K. pneumoniae] as the cause of diseases classified elsewhere; E87.6 Hypokalemia
CPT/HCPCS: 2NBSP; 36415; 74176; 81001; 81025; 82436; 87040; 87086; 93005; 93010; 96361; 96374; C2617; J0131; J0696; J0744; J1100; J1885; J2405; J3101